=== PATIENT | female | born 1995 | race Caucasian/White ===

== ENCOUNTER 2023-11-27 22:11 | Emergency (ER) | payer MEDICAID ==
[~2023-11-27] VITALS: Ht 170.2 cm; Wt 53.1 kg
[2023-11-27] MEDS: IV NS 0.9% 1,000 ML BAG IV ONE (23:59)
[2023-11-28 00:02] LABS: BASOPHILS % (AUTO) 0.1 % (0.0-2.0); HEMATOCRIT 27 % (33-45); HEMOGLOBIN 9.4 g/dL (11.5-14.8); LYMPHOCYTES # (AUTO) 0.5 K/uL (0.8-4.8); LYMPHOCYTES % (AUTO) 19.1 % (20.0-44.0); MEAN CORPUSCULAR HEMOGLOBIN 33 PG (26.0-33.0); MEAN CORPUSCULAR HGB CONC 35 g/dl (31.0-36.0); MEAN CORPUSCULAR VOLUME 95 fL (82-100); MONOCYTES # (AUTO) 0.1 K/uL (0.1-1.30); MONOCYTES % (AUTO) 2.1 % (2.0-12.0); NEUTROPHILS # (AUTO) 2.2 K/uL (1.8-8.9); NEUTROPHILS % (AUTO) 78.7 % (43.0-81.0); RED BLOOD CELL COUNT(AUTO) 2.81 MIL/uL (4.0-5.2); WHITE BLOOD COUNT (AUTO) 2.8 K/uL (4.3-11.0)
[2023-11-28 00:06] LABS: PLATELET COUNT (AUTO) 49 K/uL (150-450)
[2023-11-28 00:22] LABS: BILIRUBIN,DIRECT 0.8 mg/dL (0.0-0.2); BILIRUBIN,TOTAL 1.7 mg/dL (0.2-1.0); CALCIUM, SERUM 8.4 mg/dL (8.5-10.1); CREATININE 0.9 mg/dL (0.6-1.3); POTASSIUM 4.2 mmol/L (3.5-5.1)
[2023-11-28 00:23] LABS: ALBUMIN 3.2 g/dL (3.4-5.0); TOTAL PROTEIN, SERUM 6.7 g/dL (6.4-8.2)
[2023-11-28 00:43] LABS: ANISOCYTOSIS 1+; BASOPHILS % (MANUAL) 0 % (0.0-2.0); EOSINOPHILS % (MANUAL) 0 % (0-4); LYMPHOCYTES % (MANUAL) 15 % (16-48); MONOCYTES % (MANUAL) 5 % (0-11.0); NEUTROPHILS % (MANUAL) 80 (42-76); PLATELET ESTIMATE DECREASED
[2023-11-28] MEDS ORDERED: ONDANSETRON HCL/PF 4 MG/2 ML VIAL ONE (02:14)
[2023-11-28] MEDS: ONDANSETRON HCL/PF - ER 4 MG/2 ML VIAL IV ONE (02:19)
[2023-11-28] MEDS ORDERED: ONDA4TAB11 PO (03:03)
[2023-11-28 03:18] VITALS: BP 112/66; TEMP 98.6; O2SAT 97
[2023-11-29 11:07] LABS: *EBV AB VCA, IgG 65.5 U/mL (0.0-17.9); *EBV AB VCA, IgM 66.1 U/mL (0.0-35.9); *EBV NUCLEAR Ag AB, IgG <18.0 U/mL (0.0-17.9)
== END 2023-11-28 03:19 | disposition home or self-care (01) ==
LOC: EDBD 22:29 → ER 22:29
DX: R53.83 Other fatigue (principal); R53.81 Other malaise; R50.9 Fever, unspecified; R05.9 Cough, unspecified; R11.0 Nausea; Z60.2 Problems related to living alone
CPT/HCPCS: 99283; 96361; 86665 ×2; 85025; 80048; 80076; 36415; 86664; 96374; 85007; J7030; J2405 ×2